=== PATIENT | male | born 1980 | race Caucasian/White ===

== ENCOUNTER 2016-05-09 11:08 | Emergency (ER) | payer OTHER ==
[~2016-05-09] VITALS: Ht 177.8 cm; Wt 83.2 kg
[~2016-05-09 11:08] MED LIST: FLEXERIL 1010 MG/TAB PO; IBU600 MG PO; NORCO 325 MG-51 TAB PO
[2016-05-09 11:12] VITALS: TEMP 98.6
[2016-05-09 12:01] LABS: HEMATOCRIT 45.5 % (42.0-52.0); MEAN CELL VOLUME 87 fl (80.0-100.0); MEAN CORPUSCULAR HEMOGLOBIN 33 pg (27.0-31.0); MEAN CORPUSCULAR HGB CONC 37 g/dl (33.0-37.0); MEAN PLATELET VOLUME 9.6 fl (7.4-10.4); PLATELET COUNT 195 K/mm3 (130-400); RED BLOOD COUNT 5.23 M/mm3 (4.20-5.60); REDCELL DISTRIBUTION WIDTH-CV 12.4 % (11.5-14.5); WHITE BLOOD COUNT 6.1 K/mm3 (4.8-10.8)
[2016-05-09 12:10] LABS: ADJUSTED CALCIUM 9.5 mg/dL (8.4-10.2); ALANINE AMINOTRANSFERASE 41 U/L (21-72); ALKALINE PHOSPHATASE 52 U/L (50-136); ANION GAP 11 mmol/L (7-16); BILIRUBIN,TOTAL 1.2 mg/dL (0.0-1.0); BLOOD UREA NITROGEN 9 mg/dL (9-20); CALCIUM 10.3 mg/dL (8.4-10.2); CARBON DIOXIDE 26 mmol/L (22-30); CHLORIDE 102 mmol/L (98-107); CREATININE, serum 0.75 mg/dL (0.66-1.25); GLUCOSE 110 mg/dL (74-106); LIPASE 81 U/L (23-300); MAGNESIUM 1.9 mg/dL (1.6-2.3); POTASSIUM 3.8 mmol/L (3.4-5.0); SODIUM 139 mmol/L (137-145); TOTAL PROTEIN 8.1 gm/dL (6.4-8.2)
[2016-05-09 12:11] LABS: ADD PATHOLOGY DIFF REVIEW NO
[2016-05-09 12:22] LABS: TROPONIN-I < 0.012 ng/mL (0.000-0.034)
[2016-05-09 12:25] LABS: BAND 4 % (0-10); EOSINOPHIL 2 % (0-4); NEUTROPHILS 67 % (42.0-75.2); PLATELET ESTIMATE NORMAL (NORMAL); TOTAL CELLS COUNTED 100
[2016-05-09] MEDS ORDERED: NEXIUM 40MG40 MG PO (13:38)
[2016-05-09 14:06] VITALS: BP 148/90; PULSE 83
== END 2016-05-09 14:10 | disposition home or self-care (01) ==
LOC: COL.ER 11:08
PROVIDERS: Emergency Medicine
DX: R07.9 Chest pain, unspecified (principal); R14.2 Eructation; R14.0 Abdominal distension (gaseous); F10.10 Alcohol abuse, uncomplicated; Y90.9 Presence of alcohol in blood, level not specified
CPT/HCPCS: C9113; J7030

== ENCOUNTER 2018-10-23 13:01 | Emergency (ER) | payer OTHER ==
[~2018-10-23] VITALS: Ht 180.3 cm; Wt 81.8 kg
[~2018-10-23 13:01] MED LIST changes: +NEXIUM 40MG40 MG PO
[2018-10-23 13:18] VITALS: TEMP 98.7
[2018-10-23 14:12] LABS: HEMATOCRIT 42.5 % (42.0-52.0); HEMOGLOBIN 15.9 g/dl (13.5-18.0); MEAN CELL VOLUME 87 fl (80.0-100.0); MEAN CORPUSCULAR HEMOGLOBIN 33 pg (27.0-31.0); MEAN CORPUSCULAR HGB CONC 37 g/dl (33.0-37.0); PLATELET COUNT 216 K/mm3 (130-400); RED BLOOD COUNT 4.88 M/mm3 (4.20-5.60); REDCELL DISTRIBUTION WIDTH-CV 12.2 % (11.5-14.5)
[2018-10-23 14:20] LABS: ALANINE AMINOTRANSFERASE 24 U/L (21-72); ALBUMIN 4.8 gm/dL (3.5-5.0); ALKALINE PHOSPHATASE 65 U/L (50-136); ANION GAP 14 mmol/L (7-16); AST,SGOT 30 U/L (15-37); BILIRUBIN,TOTAL 1.1 mg/dL (0.0-1.0); BLOOD UREA NITROGEN 12 mg/dL (9-20); CALCIUM 9.9 mg/dL (8.4-10.2); CARBON DIOXIDE 24 mmol/L (22-30); CHLORIDE 96 mmol/L (98-107); GLUCOSE 108 mg/dL (74-106); POTASSIUM 3.9 mmol/L (3.4-5.0); SODIUM 133 mmol/L (137-145)
[2018-10-23 14:34] LABS: TROPONIN-I < 0.012 ng/mL (0.000-0.035)
[2018-10-23 15:27] VITALS: BP 144/84; PULSE 78
[2018-10-23 15:41] LABS: EOSINOPHIL 1 % (0-4); LYMPHOCYTE 26 % (20.0-51.0); NEUTROPHILS 64 % (42.0-75.2)
[2018-10-23 15:42] LABS: PLATELET ESTIMATE NORMAL (NORMAL)
== END 2018-10-23 15:30 | disposition home or self-care (01) ==
LOC: COL.ER 13:01
PROVIDERS: Emergency Medicine
DX: R42 Dizziness and giddiness (principal); I10 Essential (primary) hypertension; F17.210 Nicotine dependence, cigarettes, uncomplicated
CPT/HCPCS: J2060; J2405; J7030

== ENCOUNTER 2020-05-14 12:58 | Emergency (ER) | payer OTHER ==
[~2020-05-14] VITALS: Ht 180.3 cm; Wt 81.8 kg
[2020-05-14 13:15] VITALS: TEMP 98.2
[2020-05-14 13:51] LABS: BASO # 0.1 (0.0-0.2); EOS # 0.2 (0.0-0.7); EOS % 2.4 % (0-4.0); GRAN # 4.4 (1.4-6.5); GRAN % 65.3 % (42.2-75.2); LYMPH # 1.5 (1.2-3.4); LYMPH % 22.3 % (20.0-51.0); MEAN CELL VOLUME 90 fl (80.0-100.0); MEAN CORPUSCULAR HEMOGLOBIN 33 pg (27.0-31.0); MEAN CORPUSCULAR HGB CONC 36 g/dl (33.0-37.0); MEAN PLATELET VOLUME 9.4 fl (7.4-10.4); MONO # 0.5 (0.1-0.6); MONO % 7.7 % (1.7-9.3); PLATELET COUNT 230 K/mm3 (130-400); REDCELL DISTRIBUTION WIDTH-CV 12.6 % (11.5-14.5)
[2020-05-14 13:56] LABS: ALANINE AMINOTRANSFERASE 25 U/L (4-49); ALBUMIN 4.9 gm/dL (3.5-5.0); ALKALINE PHOSPHATASE 54 U/L (50-136); ANION GAP 9 mmol/L (7-16); AST,SGOT 25 U/L (15-37); BLOOD UREA NITROGEN 13 mg/dL (9-20); CALCIUM 9.8 mg/dL (8.4-10.2); CARBON DIOXIDE 28 mmol/L (22-30); CHLORIDE 101 mmol/L (98-107); CREATININE, serum 0.92 (0.66-1.25); GLUCOSE 97 mg/dL (74-106); LIPASE 205 U/L (23-300); POTASSIUM 3.8 mmol/L (3.4-5.0); SODIUM 138 mmol/L (137-145); TOTAL PROTEIN 7.8 gm/dL (6.4-8.2)
[2020-05-14 14:20] LABS: TROPONIN-I < 0.012 ng/mL (0.000-0.035)
[2020-05-14 14:50] VITALS: BP 128/85; PULSE 75
== END 2020-05-14 14:50 | disposition home or self-care (01) ==
LOC: COL.ER 12:58
PROVIDERS: Physician Assistant
DX: R07.89 Other chest pain (principal); F17.210 Nicotine dependence, cigarettes, uncomplicated
CPT/HCPCS: J1885; J2060; J7030